=== PATIENT | female | born 1965 | race Caucasian/White ===

== ENCOUNTER 2018-09-10 18:49 | Emergency (ER) | payer BC ==
[~2018-09-10] VITALS: Ht 160 cm; Wt 62.0 kg
[2018-09-10] MEDS ORDERED: MORPHINE SULFATE 10 MG/ML CPJ IM ONE (19:45)
[2018-09-10] MEDS ORDERED: ONDANSETRON 4MG ODT PO ONE (20:45)
[2018-09-10 21:19] VITALS: BP 139/82
== END 2018-09-10 21:20 | disposition home or self-care (01) ==
LOC: ER 19:57
DX: M53.3 Sacrococcygeal disorders, not elsewhere classified (principal); M25.551 Pain in right hip; M54.5 Low back pain; Z88.0 Allergy status to penicillin; Z88.6 Allergy status to analgesic agent; Z88.5 Allergy status to narcotic agent; V49.49XA Driver injured in collision with other motor vehicles in traffic accident, initial encounter; Y93.89 Activity, other specified; Y92.89 Other specified places as the place of occurrence of the external cause; Y99.8 Other external cause status
CPT/HCPCS: 72100; 73522; 96372; 99283; J2270; Q0162